=== PATIENT | male | born 1975 | race Caucasian/White ===

== ENCOUNTER 2019-09-05 09:57 | Observation (INO) | payer OTHER, SELFPAY ==
[2019-09-05] VITALS (12 sets, daily range): BP systolic 119–189; BP diastolic 82–113; PULSE 60–81; RESP 15–20; TEMP 36.6–36.9; O2SAT 95–100; BMI 32.4; BMI 30.9; BMI 31.0
--- NOTE | 2019-09-05 10:08 | EKG12_ITS ---
Test Reason : CP Blood Pressure : / mmHG Vent. Rate : 084 BPM Atrial Rate : 084 BPM P-R Int : 168 ms QRS Dur : 104 ms QT Int : 384 ms P-R-T Axes : 061 014 034 degrees QTc Int : 453 ms Normal sinus rhythm Normal ECG Confirmed by MINI POWERS, REJI ([id number]), copy editor CATIE BEJARANO ([id number] on 09/09/2019 9:43:50 AM Referred By: Confirmed By:PIA MORSE MD
--- NOTE | 2019-09-05 10:11 | RAD_ITS ---
STUDY: X-RAY CHEST REASON FOR EXAM: Male, 44 years old. Chest tingling pain in left arm TECHNIQUE: Single AP portable view of the chest. COMPARISON: None. FINDINGS: The lungs are clear and expanded. There is no demonstrated pleural abnormality. There is borderline cardiomegaly. Normal mediastinum and martha. Normal visualized pulmonary arteries. Normal visualized aortic arch and descending thoracic aorta. There are diffuse degenerative changes of the visualized thoracic spine. Normal visualized ribs, clavicles, and shoulders. There is no demonstrated abnormality of the visualized soft tissue structures of the upper abdomen. RAD/Chest 1 View (Portable) IMPRESSION: No demonstrated acute cardiopulmonary process. Electronically Signed: Ann Guerrero MD at 10:47 EDT Tel , Service support ,
[2019-09-05 10:24] LABS: Absolute Lymphocyte Count 1.92 X10^3/uL (0.83-4.51); Absolute Neutrophil Count 5.1 X10^3/uL (2.0-7.7); Basophil# 0.04 X10^3/uL; Basophil% 0.5 % (0-1); Eosinophil# 0.07 X10^3/uL; Eosinophils% 0.9 % (0-5); Hematocrit 46.6 % (40-54); Hemoglobin 15.3 g/dL (13.0-16.5); Lymphocyte # 1.92 X10^3/ul (4.0); Mean Corp Hgb Conc 32.8 g/dL (32-36); Mean Corpuscular Hgb 28.2 pg (27.0-32.0); Mean Platelet Vol. 9.7 fl (6.2-12.0); Monocyte# 0.48 X10^3/uL; Monocyte% 6.3 % (0-10); NRBC Flagged by Analyzer 0 % (0-5); Neutrophil # 5.12 X10^3/uL (2.7-7.7); Neutrophil % 66.6 % (47-70); Platelet Count 277 K/mm3 (150-450); RBC Distribution Width SD 40.1 fl (35.1-43.9); Red Blood Count 5.42 M/mm3 (4.6-6.2); White Blood Count 7.7 K/mm3 (4.4-11.0)
--- NOTE | 2019-09-05 10:37 | ED.DCSUM_ITS ---
- ER Visit Summary Date of Service: 09/05/19 Chief Complaint: [Chest pain] History of Present Illness: The patient is a 44 M [presents to the emergency department complaint of not feeling well since around 8:30 AM. Patient states that he was in bed watching television when he noticed a knot sensation and felt like he needed to stand up. Patient states that he had an odd discomfort in his left arm and thought maybe he slept wrong. Patient also had some fleeting discomfort in his chest. Patient states that his hands and became sweaty. He denies any shortness of breath or nausea or vomiting. He is never had discomfort like that before. Patient does have a history of hypertension and there is a significant family history of heart disease with his father having his first OK in his late 20s. Patient does travel frequently. He has no history of PE or DVT. He denies any swelling in his legs out of the ordinary.] Physical Examination: [HEENT-PERRLA, EOMI. Cranial nerves II through XII grossly intact. TMs clear. Mucous membranes moist. No adenopathy. Cardiovascular-regular rate and rhythm without murmur or ectopy Lungs-clear to auscultation, chest wall stable without crepitus or subcu emphysema Abdomen-normoactive bowel sounds, soft, nontender, no rebound or rigidity, no peritoneal signs. Extremities-intact ?4, normal range of motion, normal pulses, atraumatic] Test Results: [EKG obtained showed sinus rhythm with a ventricular rate of 84 bpm with no acute ST segment changes. CBC with differential is normal. Chemistries were normal. Chest x-ray showed nothing acute. Troponin was less than 0.15. D-dimer pending.] Emergency Department Course and Treatment: [She received aspirin. Patient was ordered nitroglycerin sublingual. Patient symptoms mostly resolved with the nitroglycerin and he had an inch of Nitropaste placed to the anterior chest wall.] Treatment Plan: [Admit for further work-up and evaluation of chest pain] Disposition: [Admit] Impression: [Chest pain-rule out acute coronary syndrome] This note was generated with [employer] dictation software. It may contain incorrect words, spelling, and punctuation that were not noted in review of the chart prior to signing ED Disposition - Plan for ED Patient: Referrals: Ashish Worrell MD [Primary Care Provider] -
[2019-09-05 10:40] LABS: Anion Gap 6 (5-15); BUN 16 mg/dL (7-18); BUN/Creat Ratio 15.5 RATIO (10-20); Calcium,Total 8.9 mg/dL (8.5-10.1); Chloride 106 mmol/L (98-107); Creatinine, Serum 1.03 mg/dL (0.70-1.30); EST Glomerular Filtration Rate 82 mL/min (>60); Est Glom Filt Rate - Afr Amer 100 mL/min (>60); Estimated Creatinine Clearance 89.61 ml/min; Glucose 102 mg/dL (74-106); Sodium Level 141 mmol/L (136-145)
[2019-09-05] MEDS: Aspirin 81 MG TAB.CHEW 324 MG PO (10:49)
[2019-09-05] MEDS: Nitroglycerin SL (ED/IMG/CATH) 0.4 MG TABLET SUBLINGUAL (10:54)
[2019-09-05] MEDS: 0.9% Normal Saline 1,000 ML 150 ML IV (11:02)
[2019-09-05] MEDS: Nitroglycerin Oint 1 INCH PACKET TRANSDERM. (11:16)
--- NOTE | 2019-09-05 11:18 | HP.PCM_ITS ---
Problem List (1) Chest pain Status: Acute (2) Essential (primary) hypertension Status: Chronic (3) Tobacco chew use Status: Chronic History of Present Illness Date of Admission: 09/05/19 Chief Complaint: Chest pain The patient is a 44 year old M with past medical history significant for essential hypertension for which he is on atenolol who presented with chest discomfort. Patient symptoms started on the morning of his presentation was drinking coffee in bed. He described his chest pain as a discomfort located in the midsternal region. He also did experience some numbness in both arms with significant discomfort in the left arm. He also did complain of feeling dizzy and had difficulty with his gait. His symptoms recurred after resolving he therefore became concerned and elected to present to the emergency department. Emergency department patient was found to have markedly elevated blood pressure with systolic of 189. EKG obtained demonstrated sinus rhythm. Was found to have slightly elevated d-dimer CT of the chest was ordered prior to patient being admitted Past Medical History Past Medical History (Chronic Problems): Chronic Problems Essential (primary) hypertension (Chronic) Tobacco chew use (Chronic) Allergies Penicillins Allergy (Verified 09/05/19 10:03) Unknown Home Medications: Ambulatory Orders Medication Instructions Recorded Atenolol [Tenormin (beta carmen)] 50 mg PO DAILY 09/05/19 Smoking Status: Never smoker Tobacco Use: Chew - *Family History Paternal History Items: Heart Disease Review of Systems Constitutional: Denies: Anorexia, Chills, Fever, Night Sweats, Weight Change HEENT: Denies: Head Aches, Sinus Congestion, Sinus Drainage Cardiovascular: Reports: Chest Pain, Light Headedness. Denies: Orthopnea, Palpitations, Paroxysmal Noc. Dyspnea Respiratory: Denies: Cough, Shortness of breath at rest, Shortness of breath upon exertion, Sputum production Gastrointestinal: Denies: Abdominal Pain, Hematemesis, Hematochezia, Nausea, Melena, Vomiting Genitourinary: Denies: Dysuria, Frequency, Hematuria, Urgency Musculoskeletal: Denies: Joint Pain, Joint Tenderness Skin: Denies: Rash Neurological: Reports: Incoordination. Denies: Focal weakness, Numbness, Tingling Psychiatric: Denies: Homicidal Ideations, Suicidal Ideations Hematologic/ Lymphatic: Denies: Easy Bruising, Easy Bleeding VTE Information - Inpt Only VTE Present on Admission: No VTE Mechan Device Prophylaxis: None VTE Pharm Prophylaxis ordered?: Yes Patient Problems: Active and Suspected Problems Chest pain (Acute) Objective: GENERAL: cooperative HEENT: Atraumatic; EYES; Anicteric, Normal Conjunctiva NECK; supple, normal thyroid, RESPIRATORY: Diminished to auscultation CARDIOVASCULAR: Regular S1 S2, GI: soft, non-tender, normoactive bowel sounds, : No Renal angle tenderness; EXTREMITIES: No edema, no clubbing, no cyanosis. MUSCULOSKELETAL: No Joint Tenderness; NEURO: Awake; no lateralizing signs. SKIN: No Rash PSYCH; Normal affect - Physical Exam Vital Signs Temp Pulse Resp BP Pulse Ox 98.4 F 61 16 132/96 H 97 09/05/19 09:58 09/05/19 11:16 09/05/19 11:02 09/05/19 11:16 09/05/19 11:02 Oxygen Delivery Method Room Air Weight: 99.7 kg Body Mass Index (BMI) 32.4 Laboratory Tests Past 24 Hrs 09/05/19 09/05/19 09/05/19 10:01 10:01 10:01 WBC 7.7 RBC 5.42 Hgb 15.3 Hct 46.6 MCV 86.0 MCH 28.2 MCHC 32.8 RDW Std Deviation 40.1 RDW Coeff of Juan Carlos 13.0 Plt Count 277 MPV 9.7 Immature Gran % (Auto) 0.700 Neut % (Auto) 66.6 Lymph % (Auto) 25.0 Gosper % (Auto) 6.3 Eos % (Auto) 0.9 Baso % (Auto) 0.5 Absolute Neuts (auto) 5.1 Absolute Lymphs (auto) 1.92 Nucleated RBC % 0 D-Dimer Quant (PE/DVT) Pending Sodium 141 Potassium 4.0 Chloride 106 Carbon Dioxide 29.0 Anion Gap 6 BUN 16 Creatinine 1.03 Estim Creat Clear Calc 89.61 Est GFR (MDRD) Af Amer 100 Est GFR (MDRD) Non-Af 82 BUN/Creatinine Ratio 15.5 Glucose 102 Calcium 8.9 Troponin I < 0.015 Assessment/Plan All Active Problems Chest pain (Acute) Patient is a 44-year-old gentleman presented with chest pain and lightheadedness. Found to have slightly elevated d-dimer admitted to monitored bed for further management 1. Chest Pain: Placed on a monitored bed; plan is to rule out MS with serial cardiac enzymes. Once MS has been ruled out patient will need to undergo a nuclear stress test to complete the work-up. Did discuss with patient and family this will most likely be performed as outpatient since no stress test is performed on 09/06/2019 2. Incoordination: Placed on a monitored bed MRI ordered to rule out posterior circulation CVA 3. Essential hypertension: Patient blood pressure on admission was markedly elevated he is on atenolol 50 mg daily did continue in addition to hydralazine PRN 4. Obesity with BMI of 32.5 weight loss advised 5. Tobacco dependence counseled on cessation, offered nicotine patch for tobacco cravings 6. DVT prophylaxis SC Lovenox Code Visit OBSV E&M: 62141 Initial observation care L3
[2019-09-05 11:32] LABS: D-Dimer Quantitative (DVT/PE) 0.55 FEU/ug/m (0.27-0.49)
--- NOTE | 2019-09-05 11:33 | CT_ITS ---
STUDY: CTA CHEST REASON FOR EXAM: Male, 44 years old. Elevated d-dimer RADIATION DOSAGE (If Supplied By Facility): CTDIvol = ( 13.42 ) mGy, DLP = ( 482.92 ) mGycm TECHNIQUE: The examination was performed with the intravenous administration of IV Isovue 370 100. Post-processing of the angiographic images was performed, with multiplanar reformation and 3D reconstruction. Individualized dose optimization techniques were used for this CT. COMPARISON: X-ray September 05, 2019 FINDINGS: Normal enhancement of the main pulmonary artery and right and left pulmonary arteries. Normal enhancement of the bilateral peripheral pulmonary arteries. There is no demonstrated pulmonary embolism. Normal thoracic aorta and visualized great vessels. There is no demonstrated aortic dissection. There is trace coronary calcification image #109 series 2. Heart appears borderline enlarged. Normal mediastinum. Normal hilar regions. Normal visualized trachea and bronchi. The lungs are well expanded. Normal pulmonary parenchyma. Normal pleura. Normal chest wall structures. There are degenerative changes of thoracic spine. Normal visualized upper abdomen. CT/CTA Chest W/WO Contrast IMPRESSION: Borderline Cardiac enlargement. Trace coronary calcification. No visualized pulmonary embolism. No evidence of aortic dissection. Electronically Signed: Ann Guerrero MD at 13:14 EDT Tel , Service support ,
--- NOTE | 2019-09-05 11:37 | ECHOD_ITS ---
Reason For Study: TIA/CVA Procedure This was a 2D Doppler, Color Flow transthoracic echocardiogram. Exam performed portable in patient room. Left Ventricle Normal size and thickness. The estimated ejection fraction is 60 %. No evidence for diastolic dysfunction. No regional wall motion abnormalities noted. Right Ventricle Normal RV size. Normal systolic function. Atria Normal left atrium. Normal right atrium. No doppler evidence for ASD. Bubble contrast study negative for right to left interatrial shunt. Mitral Valve There is no mitral valve stenosis. Trivial mitral valve insufficiency. Tricuspid Valve There is no tricuspid stenosis. Unable to estimate RV systolic pressure due to inadequate jet, pulmonary artery pressure probably normal. Aortic Valve Trisinus/trileaflet aortic valve. There is no aortic stenosis. No aortic valve insufficiency. Pulmonic Valve There is no pulmonic valvular stenosis. No pulmonic valve insufficiency. Great Vessels Normal aortic root. Pericardium/Pleural No pericardial effusion. Medication Performed a rapid injection of agitated mix of 9 cc saline and 1cc air to assess for atrial septal defect. MMode/2D Measurements & Calculations LVIDd: 5.1 cm IVSd: 1.2 cm Ao root diam: 3.0 cm LVIDs: 2.7 cm LVPWd: 1.1 cm RVDd: 3.3 cm FS: 47.0 % LAV(MOD-bp): 59.6 ml LA A4 area: 18.5 cm2 LA dimension(2D): 4.3 cm LAV(MOD-bp) Indexed: 28.3 ml/m2 LAV(MOD-sp2): 70.3 ml LAV(MOD-sp4): 50.1 ml RA A4 area: 16.6 cm2 Doppler Measurements & Calculations MV E max cody: 89.4 cm/sec Lat Peak E' Cody: 12.3 cm/sec Med Peak E' Cody: 9.5 cm/sec MV A max cody: 54.7 cm/sec E/E' lat: 7.3 E/E' med: 9.4 MV E/A: 1.6 Ao V2 max: 152.4 cm/sec LV V1 max: 118.6 cm/sec PA V2 max: 111.5 cm/sec Ao max P.3 mmHg LV V1 max P.6 mmHg Interpretation Summary The estimated ejection fraction is 60 %. No evidence for diastolic dysfunction. Bubble contrast study negative for right to left interatrial shunt. Ordering Physician: Shaun Leon Referring Physician: Jani Worrell MD Performed By: Gina Jesus RDCS
--- NOTE | 2019-09-05 11:37 | EKG12_ITS ---
Test Reason : CP ADMIT Blood Pressure : / mmHG Vent. Rate : 068 BPM Atrial Rate : 068 BPM P-R Int : 166 ms QRS Dur : 108 ms QT Int : 416 ms P-R-T Axes : 045 003 011 degrees QTc Int : 442 ms Normal sinus rhythm Normal ECG When compared with ECG of 05-SEP-2019 10:03, MANUAL COMPARISON REQUIRED, DATA IS UNCONFIRMED Confirmed by KEN VEGA ([id number]), editor & co founder CATIE BEJARANO ([id number]) on 09/09/2019 10:44:26 AM Referred By: BRUNA Confirmed By:KEN VEGA
--- NOTE | 2019-09-05 11:37 | MRI_ITS ---
STUDY: MRI BRAIN WITHOUT CONTRAST REASON FOR EXAM: Male, 44 years old. TIA. Left arm weakness. TECHNIQUE: Standardized multiplanar fat and water weighted pulse sequences were obtained. COMPARISON: None. FINDINGS: There is susceptibility artifact associated with metallic foreign body in this scalp on the left. Normal size of the ventricles and extra-axial spaces for the patient's age. Normal white matter tracts of the supratentorial brain. There is no evidence for recent intracranial ischemia or other cause of cytotoxic edema on diffusion weighted imaging (DWI). Normal T2* images of the brain without demonstrated susceptibility artifact. There is no demonstrated hemosiderin stain. Normal bilateral basal ganglia. Normal thalami. There is no extra-axial fluid accumulation. Normal flow voids within the major intracranial circulation suggesting patency by spin echo criteria. Normal sella turcica, pituitary gland, infundibular stalk, optic chiasm and hypothalamus. Normal tectal plate and pineal gland. Normal midbrain, alda and medulla. Normal cerebellum. Normal basal cisterns. Normal bilateral temporal bones. Normal bilateral internal auditory canals. No demonstrated orbital abnormality, within the constraints of a routine brain study. Normal visualized paranasal sinuses. Normal calvarium and skull base. Normal visualized soft tissue structures. Normal visualized upper cervical spine. MRI/Brain without Contrast IMPRESSION: Normal unenhanced MRI of the brain. Electronically Signed: Malcolm Monae MD at 15:25 EDT , Service support ,
[2019-09-05] MEDS: LORazepam 2 MG/ML Syringe 1 MG IV (13:20)
--- NOTE | 2019-09-05 15:06 | CPS ---
unable to do CP admit EKG at 1145, patient in CT scan and then went straight to MRI, completed as soon as patient was back on the floors
[2019-09-05] MEDS: Atenolol 50 MG Tablet PO (21:46)
[2019-09-06] VITALS (11 sets, daily range): BP systolic 128–156; BP diastolic 84–97; PULSE 52–81; RESP 16–19; TEMP 36.6–37; O2SAT 96–99
[2019-09-06 06:24] LABS: Absolute Lymphocyte Count 2.15 X10^3/uL (0.83-4.51); Absolute Neutrophil Count 5.2 X10^3/uL (2.0-7.7); Basophil# 0.02 X10^3/uL; Basophil% 0.2 % (0-1); Eosinophil# 0.07 X10^3/uL; Eosinophils% 0.9 % (0-5); Hemoglobin 14.1 g/dL (13.0-16.5); Lymphocyte # 2.15 X10^3/ul (4.0); Lymphocyte % 26.6 % (19-41); Mean Corp Hgb Conc 32.8 g/dL (32-36); Mean Corpuscular Hgb 28.3 pg (27.0-32.0); Mean Corpuscular Volume 86.3 fL (80-94); Mean Platelet Vol. 9.9 fl (6.2-12.0); Monocyte# 0.56 X10^3/uL; Monocyte% 6.9 % (0-10); NRBC Flagged by Analyzer 0 % (0-5); Neutrophil # 5.22 X10^3/uL (2.7-7.7); Neutrophil % 64.8 % (47-70); Platelet Count 251 K/mm3 (150-450); RBC Distribution Width CV 13.2 % (11.6-14.6); RBC Distribution Width SD 41.1 fl (35.1-43.9); Red Blood Count 4.98 M/mm3 (4.6-6.2); White Blood Count 8.1 K/mm3 (4.4-11.0)
[2019-09-06 06:45] LABS: Anion Gap 6 (5-15); BUN 13 mg/dL (7-18); BUN/Creat Ratio 13.7 RATIO (10-20); Calcium,Total 8.3 mg/dL (8.5-10.1); Chloride 110 mmol/L (98-107); Creatinine, Serum 0.95 mg/dL (0.70-1.30); EST Glomerular Filtration Rate 91 mL/min (>60); Est Glom Filt Rate - Afr Amer 110 mL/min (>60); Estimated Creatinine Clearance 97.16 ml/min; Glucose 106 mg/dL (74-106); Potassium 4.1 mmol/L (3.5-5.1); Sodium Level 143 mmol/L (136-145)
--- NOTE | 2019-09-06 08:33 | VDLE_ITS ---
Reason For Study: Elevated D-Dimer RIGHT LEFT GSV is normal. GSV is normal. CFV is compressible, spontaneous, phasic, CFV is compressible, spontaneous, phasic, competent and demonstrates normal competent, and demonstrates normal augmentation. augmentation. FV is compressible, spontaneous, phasic, FV is compressible, spontaneous, phasic, competent and demonstrates normal competent and demonstrates normal augmentation. augmentation. POP V is compressible, spontaneous, phasic, POP V is compressible, spontaneous, phasic, competent and demonstrates normal competent and demonstrates normal augmentation. augmentation. T/P Trunk is compressible. T/P Trunk is compressible. PTV is compressible. PTV is compressible. RT PerV is compressible. LT PerV is compressible. Procedure Exam performed portable in patient room. A preliminary report was called and/or faxed to [facility]. Interpretation Summary Deep veins of the lower extremities are bilaterally patent and compressible segmentally. There is no evidence of deep vein thrombosis on either side. Valvular competence appears intact within the proximal deep venous systems bilaterally. The great saphenous veins appear bilaterally patent and compressible segmentally. Ordering Physician: Shaun Leon Referring Physician: Jani Worrell Performed By: Reina Manzano, MANUELA, RVT
--- NOTE | 2019-09-06 10:27 | PN_ITS ---
Patient Problems: Active and Suspected Problems Chest pain (Acute) Subjective: CC; follow-up chest pain Patient is a 44-year-old gentleman admitted with multiple complaints including chest pain and left-sided numbness. Placed on a monitored bed TN has to 5 be ruled out with serial cardiac enzymes scheduled to undergo a nuclear stress test in a.m. Patient also underwent MRI of the head which is negative for acute CVA. Patient also had elevated d-dimer CTA of the chest was negative bilateral venous duplex ordered as part of his evaluation still pending. Objective: GENERAL: cooperative HEENT: Atraumatic; EYES; Anicteric, Normal Conjunctiva NECK; supple, normal thyroid, RESPIRATORY: Diminished to auscultation CARDIOVASCULAR: Regular S1 S2, GI: soft, non-tender, normoactive bowel sounds, : No Renal angle tenderness; EXTREMITIES: No edema, no clubbing, no cyanosis. MUSCULOSKELETAL: No Joint Tenderness; NEURO: Awake; no lateralizing signs. SKIN: No Rash PSYCH; Normal affect Vitals/I&O's: Vital Signs Temp Pulse Resp BP Pulse Ox 98.1 F 81 16 149/97 H 98 09/06/19 10:05 09/06/19 10:05 09/06/19 10:05 09/06/19 10:05 09/06/19 10:05 Oxygen Delivery Method Room Air Weight: 95.1 kg Body Mass Index (BMI) 30.9 Intake and Output for Last 24 Hours 09/04/19 09/05/19 09/06/19 23:59 23:59 23:59 Intake Total 1277.5 / 1277.5 Balance 1277.5 / 1277.5 Laboratory Results 09/05/19 10:01: Sodium 141, Potassium 4.0, Chloride 106, Carbon Dioxide 29.0, Anion Gap 6, BUN 16, Creatinine 1.03, Estim Creat Clear Calc 89.61, Est GFR (MDRD) Af Amer 100, Est GFR (MDRD) Non-Af 82, BUN/Creatinine Ratio 15.5, Glucose 102, Calcium 8.9, Troponin I < 0.015 09/05/19 10:01: D-Dimer Quant (PE/DVT) 0.55 H* 09/05/19 14:10: Troponin I < 0.015 09/05/19 16:00: Troponin I < 0.015 09/06/19 05:21: WBC 8.1, RBC 4.98, Hgb 14.1, Hct 43.0, MCV 86.3, MCH 28.3, MCHC 32.8, RDW Std Deviation 41.1, RDW Coeff of Juan Carlos 13.2, Plt Count 251, MPV 9.9, Immature Gran % (Auto) 0.600, Neut % (Auto) 64.8, Lymph % (Auto) 26.6, [place] % (Auto) 6.9, Eos % (Auto) 0.9, Baso % (Auto) 0.2, Absolute Neuts (auto) 5.2, Absolute Lymphs (auto) 2.15, Nucleated RBC % 0 09/06/19 05:21: Sodium 143, Potassium 4.1, Chloride 110 H, Carbon Dioxide 27.0, Anion Gap 6, BUN 13, Creatinine 0.95, Estim Creat Clear Calc 97.16, Est GFR (MDRD) Af Amer 110, Est GFR (MDRD) Non-Af 91, BUN/Creatinine Ratio 13.7, Glucose 106, Calcium 8.3 L Current Medications Acetaminophen (Tylenol) 650 mg PO Q6H PRN PRN PRN Reason: Pain Score 1-3/Temp > 100.7 F Al Hydroxide/Mg Hydroxide (Mylanta Ii) 30 ml PO Q6H PRN PRN PRN Reason: Gastric Burning Albuterol Sulfate (Ventolin Aerosols) 2.5 mg INHALATION Q2H PRN PRN PRN Reason: SOB/Wheezing Aspirin (Ecotrin) 81 mg PO QHS [facility], [facility]1983 Atenolol (Tenormin (Beta Reji)) 50 mg PO QHS [facility], [facility]1983 Last Admin: 09/05/19 21:46 Dose: 50 mg Documented by: Enoxaparin Sodium (Lovenox) 40 mg SC DAILY@1000 ELVI Hydralazine HCl (Apresoline Iv) 10 mg IV Q4H PRN PRN PRN Reason: for SBP > 150 Sodium Chloride () 250 mls @ 15 mls/hr IV .[id number] PRN PRN Reason: SALINE FLUSH Magnesium Hydroxide (Milk Of Magnesia) 30 ml PO DAILY PRN PRN PRN Reason: Constipation Melatonin (Melatonin) 3 mg PO QHS PRN PRN PRN Reason: INSOMNIA Nitroglycerin (Nitrostat) 0.4 mg SUBLINGUAL Q5M PRN PRN Reason: Chest pain Last Admin: 09/05/19 10:54 Dose: 0.4 mg Documented by: Ondansetron HCl (Zofran) 4 mg IV Q8H PRN PRN PRN Reason: NAUSEA/VOMITING Oxycodone HCl (Oxyir) 5 mg PO Q4H PRN PRN PRN Reason: Pain Score 4-5/10 Oxycodone HCl (Oxyir) 10 mg PO Q4H PRN PRN PRN Reason: Pain Score 6-10/10 Sodium Chloride () 5 - 15 ml IV UD PRN PRN Reason: SALINE FLUSH Medical Necessity - Tobacco Use Smoking Status: Never smoker Tobacco Use: Chew Assessment/Plan All Active Problems Chest pain (Acute) Patient is a 44-year-old gentleman presented with chest pain and lightheadedness. Found to have slightly elevated d-dimer admitted to monitored bed for further management 1. Chest Pain: ~Placed on a monitored bed; TN was ruled out with serial cardiac enzymes. Patient was offered the option of being discharged home for stress test as outpatient was sustained in the hospital he opted for the latter order subsequently placed. 2D echo was ordered, scheduled to be performed on 09/07/2019 2. Incoordination: Placed on a monitored bed MRI ordered to rule out posterior circulation CVA ~Obtained came back negative for acute CVA 3. Essential hypertension: Patient blood pressure on admission was markedly elevated he is on atenolol 50 mg daily did continue in addition to hydralazine PRN ~Pressure has been stabilized 4. Elevated d-dimer ~ CTA of the chest was negative. Venous duplex ordered as part of his evaluation still pending 4. Obesity with BMI of 32.5 weight loss advised 5. Tobacco dependence counseled on cessation, offered nicotine patch for tobacco cravings 6. DVT prophylaxis SC Lovenox Clinical Impression(s) from Imaging Studies Chest X-Ray 09/05/19 10:11 IMPRESSION: No demonstrated acute cardiopulmonary process. Electronically Signed: Ann Guerrero MD at 10:47 EDT Tel , Service support , Chest CTA 09/05/19 11:33 IMPRESSION: Borderline Cardiac enlargement. Trace coronary calcification. No visualized pulmonary embolism. No evidence of aortic dissection. Electronically Signed: Ann Guerrero MD at 13:14 EDT Tel , Service support , Brain MRI 09/05/19 11:37 IMPRESSION: Normal unenhanced MRI of the brain. Electronically Signed: Malcolm Monae MD at 15:25 EDT , Service support , Code Visit OBSV E&M: 18472 Subsequent observation care L3
[2019-09-06] MEDS: amLODIPine 10 MG Tablet PO (17:35)
[2019-09-06] MEDS: Aspirin E.C. 81 MG Tablet PO (21:14)
[2019-09-06] MEDS: Atenolol 50 MG Tablet PO (21:14)
[2019-09-07] VITALS (8 sets, daily range): BP systolic 127–143; BP diastolic 63–99; PULSE 45–64; RESP 15–17; TEMP 36.6–36.8; O2SAT 96–98
--- NOTE | 2019-09-07 05:55 | EKG12_ITS ---
Test Reason : AM EKG Blood Pressure : / mmHG Vent. Rate : 062 BPM Atrial Rate : 062 BPM P-R Int : 160 ms QRS Dur : 108 ms QT Int : 416 ms P-R-T Axes : 014 016 017 degrees QTc Int : 422 ms Normal sinus rhythm Poor R wave progression Confirmed by CRISTHIAN POWERS, IAN ([id number]), publications editor CATIE BEJARANO ([id number] on 09/09/2019 11:30:00 AM Referred By: BRUNA Confirmed By:IAN MORROW MD
[2019-09-07] MEDS: Aspirin E.C. 81 MG Tablet PO (06:18)
[2019-09-07] MEDS: amLODIPine 10 MG Tablet PO (11:17)
--- NOTE | 2019-09-07 12:30 | STRESSREP_ITS ---
Stress Test Report Date: 09-07-19 Procedure: Exercise tolerance test/imaging study Indications: Chest pain Consent: Per the patient Procedure: The patient exercised on a Campos protocol for 10 minutes and 45 seconds completing Stage III and 1 minute and 45 seconds of Stage IV achieving a peak heart rate of 148 bpm (85 % predicted maximal heart rate) with a peak blood pressure 174/82 mmHg and a peak MET capacity of 12 METs. The baseline ECG demonstrated normal sinus rhythm. The peak exercise ECG demonstrated no obvious ECG changes. There was a rare PVC during exercise. The functional capacity was considered good. There was no complaint of chest discomfort during exercise or recovery. The examination was discontinued secondary to dyspnea. Impression: 1. Technically adequate (percent predicted maximal heart rate greater than 85%) exercise tolerance test 2. Peak exercise ECG with no obvious ECG changes 3. There was a rare PVC during exercise 4. Nuclear images pending Myocardial perfusion imaging study: Technique: The patient was injected with 11.8 mCi of technetium 99m Cardiolite and subsequently rest SPECT Cardiolite nuclear imaging was obtained in the horizontal long, vertical long, and short axis views. The patient exercised on a Campos protocol for 10 minutes and 45 seconds completing Stage III and 1 minute and 45 seconds of Stage IV achieving a peak heart rate of 148 bpm (85 % predicted maximal heart rate) with a peak blood pressure 174/82 mmHg and a peak MET capacity of 12 METs. The patient was injected with 34.5 mCi of technetium 99m Cardiolite and subsequently stress SPECT Cardiolite nuclear imaging was obtained in the horizontal long, vertical long, and short axis views. A gated Cardiolite study at peak stress was obtained. Interpretation: Rest and stress SPECT Cardiolite nuclear imaging status post realignment, normalization, and attenuation correction, demonstrates the appearance at rest of an area of subtle diminished tracer uptake near the distal anterior/anterior apical segments which appears to improve/normalize following stress. There is end systolic thickening and brightening. The gated Cardiolite study demonstrates myocardial thickening and inward wall motion. The reported LVEF is 69 %. Impression: 1. Rest and stress SPECT Cardiolite nuclear imaging demonstrate resting myocar dial perfusion changes which appear to improve/normalize following stress appearing compatible shifting soft tissue attenuation/artifact with no myocardial perfusion changes considered diagnostic for associated stress-induced myocardial ischemia. 2. The gated Cardiolite study reports an LVEF of 69 %. This note was generated with Dragon dictation software. It may contain incorrect words, spelling, and punctuation that were not noted in checking the note before signing.
--- NOTE | 2019-09-07 13:42 | DCINST_ITS ---
- Discharge Diagnoses Current Active Problems: Current Active and Chronic Problems Chest pain (Acute) Essential (primary) hypertension (Chronic) Tobacco chew use (Chronic) You will use the following diet at home:: Cardiac Your food should be the consistency of: Regular Your liquids should be the consistency of: Regular/Thin Discharge Activity: Return to Normal Activity Call your doctor if you observe: Fever of 101 or Higher, Shortness of breath, Dizziness, Fainting spells, Swelling in the ankles, Chest pain, Increased palpitations (irregular heartbeat) Allergies/Adverse Reactions: Allergies Penicillins Allergy (Verified 09/05/19 10:03) Unknown Medications to take at Discharge Aspirin [Aspirin, Baby] 81 mg PO QHS 09/05/19 Atenolol [Tenormin (beta carmen)] 50 mg PO QHS 09/05/19 Amlodipine [Norvasc] 10 mg PO DAILY #30 tab 09/07/19 The following prescriptions were given: Amlodipine [Norvasc] 10 mg PO DAILY #30 tab Transmission Status: Pending to [facility] Primary Care Physician: Ashish Worrell MD [Primary Care Provider] - Please follow up with your Primary Care Physician in: 3-5 days Test Results: Test results from this visit will be discussed in further detail at your follow- up appointment, if applicable.
--- NOTE | 2019-09-07 14:55 | PCM.DC.SUM ---
Discharge Date and Diagnosis - Problem List Patient Problems: Active and Suspected Problems Chest pain (Acute) Date of Admission: 09/05/19 Date of Discharge: 09/07/19 - Primary Discharge Diagnosis Active and Suspected Problems Chest pain (Acute) - Secondary Discharge Diagnosis Chronic Problems Essential (primary) hypertension (Chronic) Tobacco chew use (Chronic) Hospital Course and Treatment Imaging Results: CXR IMPRESSION: No demonstrated acute cardiopulmonary process. CTA Chest: IMPRESSION: Borderline Cardiac enlargement. Trace coronary calcification. No visualized pulmonary embolism. No evidence of aortic dissection. MRI Brain: IMPRESSION: Normal unenhanced MRI of the brain. Stress Test: Interpretation: Rest and stress SPECT Cardiolite nuclear imaging status post realignment, normalization, and attenuation correction, demonstrates the appearance at rest of an area of subtle diminished tracer uptake near the distal anterior/anterior apical segments which appears to improve/normalize following stress. There is end systolic thickening and brightening. The gated Cardiolite study demonstrates myocardial thickening and inward wall motion. The reported LVEF is 69 %. Impression: 1. Rest and stress SPECT Cardiolite nuclear imaging demonstrate resting myocardial perfusion changes which appear to improve/normalize following stress appearing compatible shifting soft tissue attenuation/artifact with no myocardial perfusion changes considered diagnostic for associated stress-induced myocardial ischemia. 2. The gated Cardiolite study reports an LVEF of 69 %. Echo: Interpretation Summary The estimated ejection fraction is 60 %. No evidence for diastolic dysfunction. Bubble contrast study negative for right to left interatrial shunt. Consults: None Operations: None Procedures: 2-D Echocardiogram, Nuclear stress test Summary of Care Provided: Per HPI: The patient is a 44 year old M with past medical history significant for essential hypertension for which he is on atenolol who presented with chest discomfort. Patient symptoms started on the morning of his presentation was drinking coffee in bed. He described his chest pain as a discomfort located in the midsternal region. He also did experience some numbness in both arms with significant discomfort in the left arm. He also did complain of feeling dizzy and had difficulty with his gait. His symptoms recurred after resolving he therefore became concerned and elected to present to the emergency department. Emergency department patient was found to have markedly elevated blood pressure with systolic of 189. EKG obtained demonstrated sinus rhythm. Was found to have slightly elevated d-dimer CT of the chest was ordered prior to patient being admitted Hospital Course: 1. Chest pain and left arm weakness/[id number]-old male with a history of hypertension presented with chest pain at rest as well his left arm weakness/incoordination. He states that it was the weakness that had him worried and then he had a second episode of chest pain and that is why he came to the ER. He had a normal EKG with unremarkable troponins. He had a stress test and echo which were both normal. An MRI of his brain revealed no acute stroke. And his weakness has resolved. On his ER work-up he also had a d-dimer that was obtained which was a little bit elevated and therefore a CTA of the chest which was negative for a PE. He has had no lower extremity swelling or calf pain, and is unlikely to have a DVT. I discussed with him that he can go home today with a normal stress test, and echo. He had side effects from the lisinopril that has been added by his PCP for his atenolol, and when he presented his blood pressures were elevated into the 180s, and therefore was started on Norvasc which she was discharged on. He will need to follow-up with his primary care physician in 3 to 5 days after discharge. 2. His other medical diagnoses were evaluated and his home medications were continued where appropriate Patient Problems: Active and Suspected Problems Chest pain (Acute) - Physical Exam General: Alert, Oriented x3, Cooperative, No apparent distress HEENT: Atraumatic, PERRLA, EOMI, Normocephalic Oral: Moist Mucosa Neck: Supple, No JVD Lungs: Clear to auscultation, Normal air movement, No rhonchi, No wheeze, No rales, Diminished Cardiovascular: Regular rate, Regular Rhythm, Normal S1, Normal S2, No murmurs Abdomen: Soft, Non Tender, Non-Distended, No Hepato-splenomegaly Extremities: No edema, Capillary Refill Less than 3 Seconds Skin: No rashes, No breakdown Neurological: Neuro grossly intact, Sensory exam intact to light touch and pain Psych/Mental Status: Normal Affect, Appropriate Vital Signs Temp Pulse Resp BP Pulse Ox 97.8 F 56 L 16 127/93 H 96 09/07/19 14:25 09/07/19 14:25 09/07/19 14:25 09/07/19 14:25 09/07/19 14:25 Oxygen Delivery Method Room Air Weight: 209 lb 10.554 oz Body Mass Index (BMI) 30.9 Intake and Output for Last 24 Hours 09/05/19 09/06/19 09/07/19 23:59 23:59 23:59 Intake Total 1277.5 / 1277.5 1475 / 1475 360 / 360 Balance 1277.5 / 1277.5 1475 / 1475 360 / 360 Discharge Activity: Return to Normal Activity Call your doctor if you observe: Fever of 101 or Higher, Shortness of breath, Dizziness, Fainting spells, Swelling in the ankles, Chest pain, Increased palpitations (irregular heartbeat) Home Medications: Medications to take at Discharge Aspirin [Aspirin, Baby] 81 mg PO QHS 09/05/19 Atenolol [Tenormin (beta carmen)] 50 mg PO QHS 09/05/19 Amlodipine [Norvasc] 10 mg PO DAILY #30 tab 09/07/19 Following Prescrptions Were Given to Patient: Amlodipine [Norvasc] 10 mg PO DAILY #30 tab Transmission Status: Received by [facility] Primary Care Physician: Ashish Worrell MD [Primary Care Provider] - Please follow up with your Primary Care Physician in: 3-5 days Disposition: Home Minutes spent on discharge:: 35 Patient Condition:: Good Medical Necessity - Tobacco Use Smoking Status: Never smoker Tobacco Use: Chew Meaningful Use Info Meaningful Use Diagnoses (Choose all that apply): None applicable Code Visit OBSV E&M: 48006 Observation care discharge
--- NOTE | 2019-09-07 14:59 | PHA.DC.MR ---
Pharmacy Service has performed discharge medication reconciliation for this patient. Home Medications Aspirin [Aspirin, Baby] 81 mg PO QHS 09/05/19 Atenolol [Tenormin (beta carmen)] 50 mg PO QHS 09/05/19 Amlodipine [Norvasc] 10 mg PO DAILY #30 tab 09/07/19 The patient's discharge medication list was reviewed for discrepancies and discrepancies were resolved.
== END 2019-09-07 13:43 | disposition home or self-care (01) ==
LOC: ED 10:28 → PCU 11:26
PROVIDERS: Admitting Provider Internal Medicine; Emergency Provider Emergency Medicine; Family Provider Family Medicine; PCP Family Medicine; Visit Provider Family Medicine
DX: R07.89 Other chest pain (principal); F17.220 Nicotine dependence, chewing tobacco, uncomplicated; I10 Essential (primary) hypertension; R20.0 Anesthesia of skin; R42 Dizziness and giddiness; E66.9 Obesity, unspecified; R53.1 Weakness; Z68.32 Body mass index [BMI] 32.0-32.9, adult; Z79.899 Other long term (current) drug therapy; Z79.82 Long term (current) use of aspirin; Z82.49 Family history of ischemic heart disease and other diseases of the circulatory system; Z71.3 Dietary counseling and surveillance
CPT/HCPCS: 36415; 70551; 71045; 71275; 78452; 80048; 84484; 85025; 85379; 93005; 93017; 93306; 93970; 96361; 96374; 99218; 99251; 99285; A9500; Q9967; A4216; G0378; G0463

== ENCOUNTER → 2021-05-10 09:59 | Outpatient (CLI) | payer OTHER, SELFPAY ==
[2019-09-05 13:52] VITALS: BMI 30.9
--- NOTE | 2021-05-10 10:03 | RAD_ITS ---
STUDY: X-RAY - RIGHT HAND REASON FOR EXAM: Right thumb pain. TECHNIQUE: 3 view(s) of the hand. COMPARISON: None. FINDINGS: Normal radiocarpal articulation. Normal distal radioulnar joint. Normal visualized carpal bones. Normal carpal articulations There are marginal osteophytes and severe joint space narrowing of the carpometacarpal articulation of the thumb. Normal second through fifth carpometacarpal joints. Normal metacarpi. Normal metacarpophalangeal joint of the thumb. Normal interphalangeal joint of the thumb. Normal proximal and distal phalanges of the thumb. Normal metacarpophalangeal joints of the second through fifth fingers. Normal proximal and distal interphalangeal joints of the second through fifth fingers. Normal phalanges of the second through fifth fingers. The soft tissue structures are unremarkable. RAD/Hand Min 3 Views IMPRESSION: Arthrosis of the first carpometacarpal articulation. Electronically Signed: Yoandy Feliz MD at 10:33 EDT Tel , Service support ,
[2021-05-10 12:54] LABS: Anion Gap 4 (5-15); BUN 14 mg/dL (7-18); BUN/Creat Ratio 13.5 RATIO (10-20); Calcium,Total 8.7 mg/dL (8.5-10.1); Chloride 106 mmol/L (98-107); Cholesterol 167 mg/dL (200); Creatinine, Serum 1.04 mg/dL (0.70-1.30); EST Glomerular Filtration Rate 81 mL/min (>60); Est Glom Filt Rate - Afr Amer 98 mL/min (>60); Glucose 93 mg/dL (74-106); High Density Lipoprotein 52 mg/dL; Potassium 4.3 mmol/L (3.5-5.1); Sodium Level 140 mmol/L (136-145); Triglycerides 77 mg/dL; Very Low Density Lipoprotein 15 mg/dL (5-40)
== END ==
PROVIDERS: PCP Family Medicine; Referring Provider Family Medicine; Visit Provider Family Medicine
DX: M79.641 Pain in right hand (principal); I10 Essential (primary) hypertension
CPT/HCPCS: 36415; 73130; 80048; 80061

== ENCOUNTER → 2021-10-24 | Outpatient (CLI) | payer OTHER, SELFPAY | END | disposition home or self-care (01) | PROVIDERS: PCP Family Medicine; Visit Provider Registered Nurse | DX: J06.9 Acute upper respiratory infection, unspecified (principal) | CPT/HCPCS: 87635; U0005; U0003 ==

== ENCOUNTER → 2023-06-11 | Outpatient (CLI) | payer OTHER, SELFPAY ==
[2023-06-11 12:19] LABS: Absolute Lymphocyte Count 1.71 X10^3/uL (0.83-4.51); Absolute Neutrophil Count 4.7 X10^3/uL (2.0-7.7); Basophil# 0.03 X10^3/uL; Basophil% 0.4 % (0-1); Eosinophil# 0.07 X10^3/uL; Hematocrit 45.5 % (40-54); Hemoglobin 14.6 g/dL (13.0-16.5); Lymphocyte # 1.71 X10^3/ul (0.83-4.51); Lymphocyte % 24.5 % (19-41); Mean Corp Hgb Conc 32.1 g/dL (32-36); Mean Corpuscular Hgb 27.9 pg (27.0-32.0); Monocyte# 0.51 X10^3/uL; Monocyte% 7.3 % (0-10); NRBC Flagged by Analyzer 0 % (0-5); Neutrophil # 4.65 X10^3/uL (2.7-7.7); Neutrophil % 66.5 % (47-70); Platelet Count 271 K/mm3 (150-450); RBC Distribution Width SD 41.1 fl (35.1-43.9); Red Blood Count 5.23 M/mm3 (4.6-6.2)
[2023-06-11 13:00] LABS: Anion Gap 2 (5-15); BUN 16 mg/dL (7-18); BUN/Creat Ratio 15.2 RATIO (10-20); Calcium,Total 8.9 mg/dL (8.5-10.1); Chloride 107 mmol/L (98-107); Cholesterol 157 mg/dL (200); Creatinine, Serum 1.05 mg/dL (0.70-1.30); EST Glomerular Filtration Rate 79 mL/min (>60); Est Glom Filt Rate - Afr Amer 96 mL/min (>60); Glucose 100 mg/dL (74-106); High Density Lipoprotein 47 mg/dL; PSA,Total - Annual Screen 1.03 ng/mL (0.00-4.00); Potassium 4.3 mmol/L (3.5-5.1); Sodium Level 138 mmol/L (136-145); Thyroid Stim Hormone (TSH) 2.13 uIU/mL (0.358-3.74); Triglycerides 120 mg/dL; Very Low Density Lipoprotein 24 mg/dL (5-40)
== END | disposition home or self-care (01) ==
LOC: MFPLAB 10:03
PROVIDERS: PCP Family Medicine; Visit Provider Family Medicine
DX: R53.83 Other fatigue (principal); Z13.1 Encounter for screening for diabetes mellitus; Z13.220 Encounter for screening for lipoid disorders; Z12.5 Encounter for screening for malignant neoplasm of prostate; I10 Essential (primary) hypertension
CPT/HCPCS: 36415; 80048; 80061; 84153; 84403; 84443; 85025; G0103

== ENCOUNTER → 2024-07-09 | Outpatient (CLI) | payer OTHER, SELFPAY ==
[2024-07-09 12:29] LABS: Anion Gap 8 (5-15); BUN 17 mg/dL (7-18); BUN/Creat Ratio 16.7 RATIO (10-20); Calcium,Total 8.8 mg/dL (8.5-10.1); Chloride 106 mmol/L (98-107); Cholesterol 187 mg/dL (200); Creatinine, Serum 1.02 mg/dL (0.70-1.30); EST Glomerular Filtration Rate 82 mL/min (>60); Est Glom Filt Rate - Afr Amer 99 mL/min (>60); Glucose 110 mg/dL (74-106); High Density Lipoprotein 49 mg/dL; PSA,Total - Annual Screen 1.38 ng/mL (0.00-4.00); Sodium Level 141 mmol/L (136-145); Triglycerides 108 mg/dL; Very Low Density Lipoprotein 22 mg/dL (5-40)
== END | disposition home or self-care (01) ==
LOC: MFPLAB 09:57
PROVIDERS: PCP Family Medicine; Visit Provider Family Medicine
DX: Z12.5 Encounter for screening for malignant neoplasm of prostate (principal); Z13.1 Encounter for screening for diabetes mellitus; Z13.220 Encounter for screening for lipoid disorders
CPT/HCPCS: 36415; 80048; 80061; 84153; G0103

== ENCOUNTER → 2025-07-19 | Outpatient (CLI) | payer OTHER, SELFPAY ==
[2025-07-19 11:38] LABS: Anion Gap 12 (5-15); BUN 13 mg/dL (4-19); BUN/Creat Ratio 14.0 RATIO (10-20); Calcium,Total 9.6 mg/dL (7.6-11.0); Carbon Dioxide 26.7 mmol/L (21.0-32.0); Chloride 102 mmol/L (98-108); Glucose 116 mg/dL (70-99); PSA,Total - Annual Screen 0.79 ng/mL (0.02-4.00); Potassium 5.0 mmol/L (3.3-5.1)
== END | disposition home or self-care (01) ==
LOC: MFPLAB 08:53
PROVIDERS: PCP Family Medicine; Referring Provider Family Medicine; Visit Provider Family Medicine
DX: Z12.5 Encounter for screening for malignant neoplasm of prostate (principal); I10 Essential (primary) hypertension
CPT/HCPCS: 36415; 80048; 84153; G0103